=== PATIENT | male | born 1995 | race Caucasian/White ===

== ENCOUNTER 2018-11-06 05:22 | Emergency (ER) | payer BC ==
--- NOTE | 2018-11-06 05:24 | ER Report ---
History and Physical Time Seen By MD: 05:24 HPI/ROS CHIEF COMPLAINT: Fall, knee laceration HISTORY OF PRESENT ILLNESS: Patient is a 23-year-old male who was running this morning and fell striking his right knee on the pavement causing a 5 cm stellate laceration below the patella. Patient is neurovascularly intact at time of ev aluation with no motor weakness. Patient is not up-to-date on tetanus immunization. Denies further injury at this time. REVIEW OF SYSTEMS: Constitutional: No fever, no chills. Musculoskeletal: + Right inferior knee laceration Skin: 5 cm stellate laceration to the inferior aspect of the right knee Neurological: Neurovascular exam intact with no motor weakness Allergies: Coded Allergies: No Known Drug Allergies (Unverified , 11/06/18) Home Meds No Active Prescriptions or Reported Meds Constitutional Vital Sign - Last 24 Hours 11/06/18 11/06/18 11/06/18 11/06/18 05:25 05:25 05:30 05:37 Temp 97.4 Pulse 69 Resp 18 B/P (MAP) 146/100 (115) 146/100 140/98 (112) Pulse Ox 95 97 O2 Delivery Room Air 11/06/18 11/06/18 11/06/18 11/06/18 05:52 05:57 06:12 06:27 Pulse 70 68 61 83 Pulse Ox 94 93 93 93 Physical Exam General Appearance: The patient is alert, has no immediate need for airway protection and no signs of toxicity. No acute distress Neurological: Neurovascular exam intact distal to the injury site Skin: 5 cm stellate laceration Musculoskeletal: Mild tenderness on examination of the right inferior knee DIFFERENTIAL DIAGNOSIS: After history and physical exam differential diagnosis was considered for laceration, avulsion, tendon involvement Medical Decision Making ED Course/Re-evaluation ED Course Patient is a 23-year-old male here with complaints of a right knee laceration after falling while jogging. Patient wound was cleaned using chlorhexidine rin se. Wound is infiltrated using for analysis of 2% lidocaine with epinephrine. 4- 0 Ethilon sutures 7 were used to approximate the wound margins after debriding nonviable tissue. Patient tolerated procedure well. Ten-day removal recommended. Patient was advised to monitor for signs of infection. Neurovascular exam was intact prior to discharge. PCP follow-up recommended. Return precautions provided. Procedure 5 cm stellate laceration was identified. Nonviable tissue was provided from the site. Wound was infiltrated with 4 mL of 2% lidocaine with epinephrine. Wound was approximated using 7 x 4-0 sutures Ethilon and Dermabond. Patient was advised to have sutures removed in 10 days and to monitor for signs of infection. Patient tolerated procedure well. Decision to Disposition Date: Nov 06, 2018 Decision to Disposition Time: 06:15 Depart Departure Latest Vital Signs Vital Signs Date Time Temp Pulse Resp B/P (MAP) Pulse Ox O2 Delivery O2 Flow Rate FiO2 11/06/18 06:27 83 93 11/06/18 05:30 140/98 (112) 11/06/18 05:25 97.4 18 Room Air Impression: Primary Impression: Knee laceration Condition: Improved Disposition: HOME OR SELF-CARE New Scripts No Active Prescriptions or Reported Meds Patient Instructions: Laceration (ED) Additional Instructions: Please monitor the wound for signs of infection. A total of 7 sutures were used to close the laceration. Please have the sutures removed in 10 days. Please return promptly if you develop fevers, increased pain, drainage, rash. MEAGAN GRANDE DO Nov 06, 2018 05:24
[2018-11-06] MEDS ORDERED: LIDOCAINE 1% MDV 200 MG/20 ML INFIL ONE (05:25)
[2018-11-06 05:30] VITALS: BP 140/98
[2018-11-06] MEDS ORDERED: DIPHTH/TETANUS/ACEL. PERTUSSIS IM ONLY ONE (05:40)
== END 2018-11-06 06:31 | disposition home or self-care (01) ==
LOC: ER 05:52
DX: S81.011A Laceration without foreign body, right knee, initial encounter (principal); W01.0XXA Fall on same level from slipping, tripping and stumbling without subsequent striking against object, initial encounter
CPT/HCPCS: 90471; 90715; 99282